=== PATIENT | female | born 1980 | race Two or more races ===

== ENCOUNTER 2017-11-14 12:23 | Day surgery (SDC) | payer OTHER ==
[2017-11-13 14:38] VITALS: BMI 27.1
[2017-11-14] MEDS ORDERED: ONDANSETRON 4 MG/2 ML VIAL IVPUSH PRN (13:46)
[2017-11-14] MEDS ORDERED: oxyCODONE HCL 5 MG TABLET PO PRN ×2 (13:46)
[2017-11-14] MEDS ORDERED: LIDOCAINE HCL 2% (20ML MULTI-DOSE VIAL) NR ONE (13:53)
[2017-11-14] MEDS ORDERED: BUPIVACAINE HCL/PF 0.25% (2.5MG/ML) 10 ML VIAL ONE (13:53)
[2017-11-14] MEDS ORDERED: LACTATED RINGERS SOLUTION 1,000 ML IV SCH (14:00)
[2017-11-14] MEDS ORDERED: MIDAZOLAM HCL 2 MG/2 ML SINGLE DOSE VIAL ONE ×3 (14:00→14:09)
[2017-11-14] MEDS ORDERED: PROPOFOL 20 ML ONE (14:00)
[2017-11-14] MEDS ORDERED: LIDOCAINE HCL 2% (50ML VIAL) NR ONE (14:10)
[2017-11-14] MEDS ORDERED: ceFAZolin SODIUM 1 GM VIAL IVPB ONE (14:11)
[2017-11-14] MEDS ORDERED: ceFAZolin SODIUM 1 GM VIAL ONE (14:18)
[2017-11-14] MEDS ORDERED: BETAMET ACET/BETAMET NA PH 30 MG/5 ML VIAL ONE (14:37)
[2017-11-14] MEDS ORDERED: BETAMET ACET/BETAMET NA PH 30 MG/5 ML VIAL IJ ONE (14:53)
[2017-11-14 18:13] VITALS: BP 110/60; PULSE 80; TEMP 97.8
--- NOTE | 2017-11-15 11:16 | OP ---
DATE OF OPERATION: 11/14/2017 SURGEON: Gilberto Donaldson DPM ANESTHESIA TYPE: MAC. ANESTHESIOLOGIST: DIAGNOSIS: 1. Soft tissue mass, unspecified. 2. Contracture, dorsum, left foot. 3. Exostosis metatarsocuneiform, left. 4. Synovitis, subtalar joint. 5. Rupture of tibialis anterior. PROCEDURE: Patient was brought to the OR, placed on the OR table in the supine position. Neuroleptic anesthesia was administered, and an ankle block was performed using 0.25% Marcaine with epinephrine 1:200,000. The left foot and ankle were prepped and draped in the usual sterile fashion, and a well-padded pneumatic ankle tourniquet was inflated to 250 mmHg to effect hemostasis. Procedure No. 1 - Skin Advancement Plasty, Dorsum, Left Foot: Attention was directed to a previous cicatrix, dorsum, left foot by the 4th and 5th metatarsals with a large contracture. A linear incision was made paralleling the contracture. Two arms were created at 60-degree angles, one distal and one proximal. The incisions were deepened down through subcutaneous tissue, and 2 triangular flaps were raised and rotated 90 degrees, so as to reorient the cicatrix from longitudinal to transverse, and this was noted. It released the contracture. Closure was performed using 4-0 nylon. Procedure No. 2 - Removal of Bone Met-Cuneiform, Left: Attention was directed to the base of the 2nd metatarsal intermediate cuneiform joint. A linear incision was made. The incision was deepened down through subcutaneous tissue, maintaining hemostasis as necessary for Vicryl ligature. Superficial fascia was freed from the deep fascia. Joint capsule, base of 2nd metatarsal, intermediate cuneiform joint was identified. Care was taken to retract all neurovascular structures out of the incision. Subfascial and subjoint capsular incision was made. Prominent bone was resected. The wound site was flushed with sterile saline. Closure was performed using 4-0 Vicryl subcutaneous, 4-0 nylon skin. Procedure No. 3 - Arthrotomy, Synovectomy, Subtalar Joint, Left: Attention was directed to the lateral side of the left foot over the subtalar joint. A linear incision was made distal lateral to the fibula. The incision was deepened down through subcutaneous tissue maintaining hemostasis as necessary for Vicryl ligature. Superficial fascia was freed from the deep fascia. The subtalar joint was identified. The fatty plug was retracted. A linear incision was made into the subtalar joint. Hypertrophic synovitis was identified. Arthrotomy was performed. No sign of infection. The area was lavaged with sterile saline. Synovectomy was performed. Closure was performed using 4-0 Vicryl subcutaneous, 4-0 nylon for skin. Procedure No. 4 - Excision, Soft Tissue Mass Unspecified, Dorsum Left foot: Attention was directed over a soft tissue mass at the mid shaft of the 2nd and 1st metatarsal shafts. The incision was made directly over the mass. The incision was deepened down through subcutaneous tissue. In the subcutaneous tissue, there appeared to be a darkened, well-circumscribed soft tissue mass. Careful combined sharp and blunt dissection was used to resect the soft tissue mass. Some adherence to the dorsal medial cutaneous nerve was identified. This was freed off the nerve branch. Mass was excised in toto, and a 4-mm border was excised, as well. Closure was performed using 4-0 Vicryl subcutaneous, 4-0 nylon for skin. Procedure No. 5 - Repair of Extensor Tendon, Left Foot: Attention was directed to the insertion of the tibialis anterior. A linear incision was made. The incision was deepened down through subcutaneous tissue maintaining hemostasis as necessary with 4-0 Vicryl ligature. The tibialis anterior sheath was identified and was opened up. Hemorrhagic areas in the tendon sheath were identified. Longitudinal tears were resected. The tendon was reinforced and repaired using 4-0 Vicryl, tendon sheath repaired with 4-0 Vicryl, subcutaneous with 4-0 Vicryl, skin closed with 4-0 nylon. Postoperatively, all surgical sites were dressed with sterile 4x4s, Kenrick, and a Coban wrap. The well-padded pneumatic ankle tourniquet was deflated, and normal hyperemic flush noted to return to all digits of the left foot. Patient tolerated the surgery and anesthesia well and left the OR for recovery room with vital signs stable in independent satisfactory condition. GILBERTO DONALDSON DPM [id number]
--- NOTE | 2017-11-20 13:18 | PATH ---
Surgical Pathology Report Patient Name: MONIQUE BRYAN [facility]. Rec. #: [id number] /Age/Gender: 1980 (Age: 36) / F Account: [id number] Location: [facility] SURGICAL Taken: 11/14/2017 Received: 11/14/2017 Reported: 11/20/2017 Physicians: Gilberto Schwartz DPM Specimen(s) Received SOFT TISSUE MASS RECEIVED FRESH Clinical History Soft tissue mass Final Diagnosis SOFT TISSUE MASS, LEFT FOOT, EXCISION: FIBROBLASTIC / MYOFIBROBLASTIC NEOPLASM, CONSISTENT WITH NODULAR FASCIITIS. Comment: Proliferation of plump fibroblasts /myofibroblastswithout significant nuclear atypia, mitotic figures3~4/10 HPF. Extravasated red blood cellsand focal scattered multinucleated giant cells present. Immunostain slides show the lesional cells to be positive for SMA. CD68 staining is present in the multinucleated giant cells and occasionally in spindle cells. HHV 8, S100, CD34, CD31, factor XIII, factor VIII are negative in the tumor cells. The morphologic and immunostain findings are consistent with nodular fasciitis. Clinical correlation is recommended. Immunohistochemistry stains were performed at [place], [place] ([id number]) and interpreted at [facility]. Positive and negative controls (internal if applicable) show appropriate results. Intradepartmental case reviewed with consensus on diagnosis. Electronically Signed Good Simeon M.D. Gross Description Received fresh labeled "soft tissue mass," is a 1.0 x 0.9 x 0.4 cm tao-yellow, unoriented portion of soft tissue. The specimen is inked blue and serially sectioned. Sectioning reveals firm tao-brown parenchyma. After discussing the case with Dr. Schwartz, no frozen section is performed. The specimen is entirely submitted in one cassette. /11/14/201711/14/2017
== END 2017-11-14 18:32 | disposition home or self-care (01) ==
LOC: JASU-SURG 12:23
PROVIDERS: ATTEND Podiatrist
PROC: 0QBP0ZZ Excision of Left Metatarsal, Open Approach (ICD-10-PCS; 2017-11-14)
PROC: 0SBJ0ZZ Excision of Left Tarsal Joint, Open Approach (ICD-10-PCS; 2017-11-14)
PROC: 0JBR0ZZ Excision of Left Foot Subcutaneous Tissue and Fascia, Open Approach (ICD-10-PCS; 2017-11-14)
PROC: 0LQW0ZZ Repair Left Foot Tendon, Open Approach (ICD-10-PCS; 2017-11-14)
PROC: 0HN Skin and Breast, Release (ICD-10-PCS; principal; 2017-11-14 13:30)
DX: M72.4 Pseudosarcomatous fibromatosis (principal); M24.575 Contracture, left foot; M89.9 Disorder of bone, unspecified; M65.872 Other synovitis and tenosynovitis, left ankle and foot; M66.272 Spontaneous rupture of extensor tendons, left ankle and foot
CPT/HCPCS: 84703; 88305-TC; 94760